=== PATIENT | male | born 1990 | race Two or more races ===

== ENCOUNTER 2017-01-20 21:53 | Inpatient (IN) | payer BC, MEDICAID ==
[2017-01-20 22:22] LABS: HEMOGLOBIN 15.8 gm/dL (13.2-17.3); MEAN CORPUSCULAR HEMOGLOBIN 30.9 pg (26.0-30.0); MEAN CORPUSCULAR HGB CONC 33.6 pg (28.0-36.0); MEAN PLATELET VOLUME 6.7 fl; PLATELET COUNT 418 Th/cmm (150-400); RED BLOOD COUNT 5.11 Mil/cmm (4.30-5.70); RED CELL DISTRIBUTION WIDTH 12.9 % (11.5-20.0)
[2017-01-20 22:32] LABS: WHITE BLOOD COUNT 12.8 Th/cmm (4.8-10.8)
[2017-01-20 22:37] LABS: INR 0.97 (0.5-1.4); PROTHROMBIN TIME (TEST) 10.1 SECONDS (9.5-11.5)
[2017-01-20] MEDS ORDERED: IOHEXOL 300MG/ML 100 ML VIAL ONE (22:42)
[2017-01-20 22:49] LABS: BASOPHIL 1 % (0-3); EOSINOPHIL 2 % (0-5); NEUTROPHILS 43 % (40-80); PLATELET ESTIMATE ADEQUATE (NORMAL); PLATELET MORPHOLOGY NORMAL (NORMAL); TOTAL CELLS COUNTED 100
[2017-01-20 22:50] LABS: ALB/GLOB RATIO 1.6 (1.0-1.8); ALKALINE PHOSPHATASE 82 U/L (34-104); ANION GAP 7.2 (7.0-16.0); BILIRUBIN,TOTAL 0.4 mg/dL (0.3-1.0); BUN - UREA NITROGEN 18 mg/dL (7-25); CALCIUM SERUM 9.5 mg/dL (8.6-10.3); CARBON DIOXIDE 24.3 mEq/L (21.0-31.0); CHLORIDE 109 mEq/L (98-107); CREATININE - SERUM 0.9 mg/dL (0.7-1.3); GLUCOSE 108 mg/dL (70-105); POTASSIUM SERUM 3.5 mEq/L (3.5-5.1); SGOT 12 U/L (13-39); SGPT/ALT 13 U/L (7-52); SODIUM SERUM 137 mEq/L (136-145)
--- NOTE | 2017-01-20 22:56 | ED Physician Chart ---
Chief Complaint/HPI - Patient Information Date Seen:: 01/20/17 Time Seen:: 22:00 Chief Complaint:: right lower quadrant pain History of Present Illness:: THIS IS A 26 YO MALE WHO STATES THAT HE SUDDENLY GOT RIGHT LOWER QUADRANT PAIN WITH SOME DIARRHEA. HE DENIES VOMITING AND FEVER. HE DENIES DIABETES, HEART DISEASE, GI PROBLEMS. HE ADMIT TO SMOKING THC BUT DENIES ALCOHOL AND ILLEGAL DRUGS. Allergies:: Allergies Allergy/AdvReac Type Severity Reaction Status Date / Time No Known Allergies Allergy Verified 01/20/17 21:55 Vitals:: Vital Signs - 8 hr 01/20/17 21:55 Temp 97.5 F HR 69 RR 16 BP 120/70 O2 Sat % 98 Historian:: Patient Review:: Nurse's Note Reviewed Review of Systems - Review of Systems General/Constitutional: No fever, No chills, No weight loss, No weakness, No diaphoresis, No edema, No loss of appetite Skin: No skin lesions, No rash, No bruising Head: No headache, No light-headedness Eyes: No loss of vision, No pain, No diplopia ENT: No earache, No nasal drainage, No sore throat, No tinnitus Neck: No neck pain, No swelling, No thyromegaly, No stiffness, No mass noted Cardio Vascular: No chest pain, No palpitations, No PND, No orthopnea, No edema Pulmonary: No SOB, No cough, No sputum, No wheezing GI: Nausea, No vomiting, No diarrhea, Pain (RIGHT LOWER QUADRANT), No melena, No hematochezia, No constipation, No hematemesis G/U: No dysuria, No frequency, No hematuria Musculoskeletal: No bone or joint pain, No back pain, No muscle pain Endocrine: No polyuria, No polydipsia Psychiatric: No prior psych history, No depression, No anxiety, No suicidal ideation Hematopoietic: No bruising, No lymphadenopathy Allergic/Immuno: No urticaria, No angioedema Neurological: No syncope, No focal symptoms, No weakness, No paresthesia, No headache, No seizure, No dizziness, No confusion, No vertigo Past Medical History - Past Medical History Obtainable: Yes Past Medical History: No significant medical hx Family History: None Social History: Smoker, No Alcohol, No Drug Use, Employed Surgical History: None Psychiatricy History: None Family Medical History - Family Member Mother History Unknown: Yes Ethnicity: Living Status: Still Living Physical Exam - Physical Examination General/Constitutional: Awake, Well-developed, well-nourished, Alert, No distress, GCS 15, Non-toxic appearing, Ambulatory Head: Atraumatic Eyes: Lids, conjuctiva normal, PERRL, EOMI Skin: Nl inspection, No rash, No skin lesions, No ecchymosis, Well hydrated, No lymphadenopathy ENMT: External ears, nose nl, Nasal exam nl, Lips, teeth, gums nl Neck: Nontender, Full ROM w/o pain, No JVD, No nuchal rigidity, No bruit, No mass, No stridor Respiratory: Nl effort/Exclusion, Clear to Auscultation, No Wheeze/Rhonchi/Rales Cardio Vascular: RRR, No murmur, gallop, rubs, NL S1 S2 GI: No organomegaly, No hernia, Normal BS's, Nondistended, No mass/bruits, No McBurney tenderness Other GI comments:: RIGHT LOWER QUADRANT SIMÓN : No CVA tenderness Extremities: No tenderness or effusion, Full ROM, normal strength in all extremities, No edema, Normal digits & nails Neuro/Psych: Alert/oriented, DTR's symmetric, Normal sensory exam, Normal motor strength, Judgement/insight normal, Mood normal, Normal gait, No focal deficits Misc: normal gait, Normal back, No paraspinal tenderness Labs/Radiology/EKG Results - Lab Results Results: Laboratory Tests 01/20/17 01/20/17 01/20/17 22:15 22:15 22:15 WBC 12.8 H RBC 5.11 Hgb 15.8 Hct 47.0 MCV 92.0 MCH 30.9 H MCHC Differential 33.6 RDW 12.9 Plt Count 418 H MPV 6.7 Neutrophils (Manual) 43 Lymphocytes 48 Monocytes 5 Eosinophils 2 Basophils 1 Atypical Lymphocytes 1 Platelet Estimate ADEQUATE Platelet Morphology NORMAL RBC Morph Micro Appear NORMAL PT 10.1 INR 0.97 PTT (Actin FS) 27.9 Troponin I 0.01 Abnormal Lab Results 01/20/17 01/20/17 01/20/17 22:15 22:15 22:15 WBC 12.8 H RBC 5.11 Hgb 15.8 Hct 47.0 MCV 92.0 MCH 30.9 H MCHC Differential 33.6 RDW 12.9 Plt Count 418 H MPV 6.7 Neutrophils (Manual) 43 Lymphocytes 48 Monocytes 5 Eosinophils 2 Basophils 1 Atypical Lymphocytes 1 Platelet Estimate ADEQUATE Platelet Morphology NORMAL RBC Morph Micro Appear NORMAL PT 10.1 INR 0.97 PTT (Actin FS) 27.9 Sodium 137 Potassium 3.5 Chloride 109 H Carbon Dioxide 24.3 Anion Gap 7.2 BUN 18 Creatinine 0.9 Est GFR ( Amer) > 60.0 Est GFR (Non-Af Amer) > 60.0 BUN/Creatinine Ratio 20.0 Glucose 108 H Whole Bld Lactic Acid Calcium 9.5 Total Bilirubin 0.4 AST 12 L ALT 13 Alkaline Phosphatase 82 Troponin I Total Protein 7.0 Albumin 4.3 Globulin 2.7 Albumin/Globulin Ratio 1.6 01/20/17 01/20/17 22:15 22:15 WBC RBC Hgb Hct MCV MCH MCHC Differential RDW Plt Count MPV Neutrophils (Manual) Lymphocytes Monocytes Eosinophils Basophils Atypical Lymphocytes Platelet Estimate Platelet Morphology RBC Morph Micro Appear PT INR PTT (Actin FS) Sodium Potassium Chloride Carbon Dioxide Anion Gap BUN Creatinine Est GFR ( Amer) Est GFR (Non-Af Amer) BUN/Creatinine Ratio Glucose Whole Bld Lactic Acid 0.84 Calcium Total Bilirubin AST ALT Alkaline Phosphatase Troponin I 0.01 Total Protein Albumin Globulin Albumin/Globulin Ratio ED Septic Shock - . Is Septic Shock (SBP<90, OR Lactate>4 mmol\L) present?: No - <6hrs of presentation: Vital Signs: Vital Signs - 8 hr 01/20/17 21:55 Temp 97.5 F HR 69 RR 16 BP 120/70 O2 Sat % 98 Reassessment (Disposition) - Reassessment Reassessment Condition:: Improved - Aftercare/Follow up Instructions Aftercare/Follow-Up Instructions:: Counseled pt regarding lab results/diagnosis & need follow up, Refer to Discharge Instructions, Counseled pt & family regarding lab results/diagnosis & need follow up - Patient Disposition Discharge/Transfer:: Home
[2017-01-20 22:58] LABS: AMPHETAMINE URINE NEGATIVE (NEGATIVE); BARBITURATES URINE NEGATIVE (NEGATIVE); METHADONE URINE NEGATIVE (NEGATIVE)
[2017-01-20 23:36] LABS: URINE BILIRUBIN NEGATIVE (NEGATIVE); URINE BLOOD MODERATE (NEGATIVE); URINE GLUCOSE (UA) NEGATIVE (NEGATIVE); URINE KETONE NEGATIVE (NEGATIVE); URINE PH 6.5 (4.6 - 8.0); URINE PROTEIN NEGATIVE (NEGATIVE); URINE UROBILINOGEN 0.2 E.U./dL (0.2 - 1.0)
[2017-01-20 23:39] LABS: URINE COLOR YELLOW
[2017-01-20 23:40] LABS: URINE BACTERIA OCCASIONAL /hpf (NONE SEEN); URINE EPITHELIAL CELLS RARE /lpf (FEW); URINE WBC 0-2 /hpf (0-5)
[2017-01-21] MEDS ORDERED: Morphine Sulfate 2 mg/mL 1mL Syr IVP PRN (02:38)
[2017-01-21] MEDS ORDERED: D5-0.45NS 1,000 ML IV SCH (02:38)
[2017-01-21 04:13] VITALS: BP 122/66
--- NOTE | 2017-01-21 08:14 | History and Physical ---
History of Present Illness - HPI Chief Complaint: Right Lower Quadrant abdominal Pain HPI: 26y/o male who presents to [facility] ER for right lower quadrant abdominal pain with diarrhea. Patient denies nausea or vomiting and fever. He also denies diabetes mellitus, heat disease or GI problems. He has a history of smoking THC, drinks alcohol and illicit drugs. Vital Signs: Last Vital Signs Temp 98 F 01/21/17 04:00 Pulse 66 01/21/17 04:00 Resp 19 01/21/17 04:00 BP 122/66 01/21/17 04:12 Pulse Ox 97 01/21/17 04:00 Past Medical History Cardiovascular: Report: No Pertinent Hx Pulmonary: Report: No Pertinent Hx COMMUNICATIONS SENIOR ASSOCIATE: Report: No Pertinent Hx GI: Report: No Pertinent Hx Psych: Report: No Pertinent Hx Musculoskeletal: Report: No Pertinent Hx Rheumatologic: Report: No pertinent Hx Infectious Disease: Report: No Pertinent Hx Renal/: Report: No Pertinent Hx Endocrine: Report: No Pertinent Hx Dermatology: Report: No Pertinent Hx - Past Surgical History Past Surgical History: No pertinent Hx Family Medical History - Family Member Mother History Unknown: Yes Ethnicity: Living Status: Still Living Social History Smoke: <1 pack per day Alcohol: None Drugs: None Lives: Alone - Medications Home Medications: Home Medication Medication Instructions Recorded Type NK [NK] 03/04/12 History - Allergies Allergies/Adverse Reactions: Allergies Allergy/AdvReac Type Severity Reaction Status Date / Time No Known Allergies Allergy Verified 01/20/17 21:55 Review of Systems - Review of Systems Constitutional: Report: No Significant Eyes: Report: No Significant ENT: Report: No Significant Respiratory: Report: No Significant Cardiovascular: Report: No Significant Gastrointestinal: Report: Abdominal Pain, Diarrhea. Denies: Nausea, Vomiting Genitourinary: Report: No Significant Musculoskeletal: Report: No Significant Skin: Report: No Significant Neurological: Report: No Significant Physical Exam - Physical Exam HEENT: Report: Ears Nose Throat within normal limits Neck: Report: Within normal limits Cardiovascular Systems: Report: +s1/s2 noted, Regular, Rate and Rhythm, no murmurs noted Respiratory: Report: Breath Sounds are within normal limits Extremities: Report: Non-tender to palpation. Skin: Report: Color of skin is within normal limits Neuro/Psych: Report: Mood affect is within normal limits, A+Ox3 - Lab Results All Lab Results last 24 hours: Laboratory Last Values WBC 12.8 Th/cmm (4.8-10.8) H 01/20/17 22:15 RBC 5.11 Mil/cmm (4.30-5.70) 01/20/17 22:15 Hgb 15.8 gm/dL (13.2-17.3) 01/20/17 22:15 Hct 47.0 % (39.0-49.0) 01/20/17 22:15 MCV 92.0 fl (80-99) 01/20/17 22:15 MCH 30.9 pg (26.0-30.0) H 01/20/17 22:15 MCHC Differential 33.6 pg (28.0-36.0) 01/20/17 22:15 RDW 12.9 % (11.5-20.0) 01/20/17 22:15 Plt Count 418 Th/cmm (150-400) H 01/20/17 22:15 MPV 6.7 fl 01/20/17 22:15 Neutrophils (Manual) 43 % (40-80) 01/20/17 22:15 Lymphocytes 48 % (20-50) 01/20/17 22:15 Monocytes 5 % (2-10) 01/20/17 22:15 Eosinophils 2 % (0-5) 01/20/17 22:15 Basophils 1 % (0-3) 01/20/17 22:15 Atypical Lymphocytes 1 % 01/20/17 22:15 Platelet Estimate ADEQUATE (NORMAL) 01/20/17 22:15 Platelet Morphology NORMAL (NORMAL) 01/20/17 22:15 RBC Morph Micro Appear NORMAL (NORMAL) 01/20/17 22:15 PT 10.1 SECONDS (9.5-11.5) 01/20/17 22:15 INR 0.97 (0.5-1.4) 01/20/17 22:15 PTT (Actin FS) 27.9 SECONDS (26.0-38.0) 01/20/17 22:15 Sodium 137 mEq/L (136-145) 01/20/17 22:15 Potassium 3.5 mEq/L (3.5-5.1) 01/20/17 22:15 Chloride 109 mEq/L (98-107) H 01/20/17 22:15 Carbon Dioxide 24.3 mEq/L (21.0-31.0) 01/20/17 22:15 Anion Gap 7.2 (7.0-16.0) 01/20/17 22:15 BUN 18 mg/dL (7-25) 01/20/17 22:15 Creatinine 0.9 mg/dL (0.7-1.3) 01/20/17 22:15 Est GFR ( Amer) > 60.0 ml/min (>90) 01/20/17 22:15 Est GFR (Non-Af Amer) > 60.0 ml/min 01/20/17 22:15 BUN/Creatinine Ratio 20.0 01/20/17 22:15 Glucose 108 mg/dL (70-105) H 01/20/17 22:15 Whole Bld Lactic Acid 0.84 mmol/L (0.60-1.99) 01/20/17 22:15 Calcium 9.5 mg/dL (8.6-10.3) 01/20/17 22:15 Total Bilirubin 0.4 mg/dL (0.3-1.0) 01/20/17 22:15 AST 12 U/L (13-39) L 01/20/17 22:15 ALT 13 U/L (7-52) 01/20/17 22:15 Alkaline Phosphatase 82 U/L (34-104) 01/20/17 22:15 Troponin I 0.01 ng/mL (0.01-0.05) 01/20/17 22:15 Total Protein 7.0 gm/dL (6.0-8.3) 01/20/17 22:15 Albumin 4.3 gm/dL (4.2-5.5) 01/20/17 22:15 Globulin 2.7 gm/dL 01/20/17 22:15 Albumin/Globulin Ratio 1.6 (1.0-1.8) 01/20/17 22:15 TSH 1.01 uIU/ml (0.34-5.60) 01/20/17 22:15 Urine Source CLEAN C 01/20/17 22:10 Urine Color YELLOW 01/20/17 22:10 Urine Clarity CLEAR (CLEAR) 01/20/17 22:10 Urine pH 6.5 (4.6 - 8.0) 01/20/17 22:10 Ur Specific [place] 1.020 (1.005-1.030) 01/20/17 22:10 Urine Protein NEGATIVE mg/dL (NEGATIVE) 01/20/17 22:10 Urine Glucose (UA) NEGATIVE mg/dL (NEGATIVE) 01/20/17 22:10 Urine Ketones NEGATIVE mg/dL (NEGATIVE) 01/20/17 22:10 Urine Blood MODERATE (NEGATIVE) H 01/20/17 22:10 Urine Nitrate NEGATIVE (NEGATIVE) 01/20/17 22:10 Urine Bilirubin NEGATIVE (NEGATIVE) 01/20/17 22:10 Urine Urobilinogen 0.2 E.U./dL (0.2 - 1.0) 01/20/17 22:10 Ur Leukocyte Esterase NEGATIVE (NEGATIVE) 01/20/17 22:10 Urine RBC 10-25 /hpf (0-5) H 01/20/17 22:10 Urine WBC 0-2 /hpf (0-5) 01/20/17 22:10 Ur Epithelial Cells RARE /lpf (FEW) 01/20/17 22:10 Urine Bacteria OCCASIONAL /hpf (NONE SEEN) 01/20/17 22:10 Urine Mucus FEW /lpf (FEW) 01/20/17 22:10 Urine Opiates Screen NEGATIVE (NEGATIVE) 01/20/17 22:10 Urine Methadone Screen NEGATIVE (NEGATIVE) 01/20/17 22:10 Ur Barbiturates Screen NEGATIVE (NEGATIVE) 01/20/17 22:10 Ur Tricyclics Screen NEGATIVE (NEGATIVE) 01/20/17 22:10 Ur Phencyclidine Scrn NEGATIVE (NEGATIVE) 01/20/17 22:10 Amphetamines Screen NEGATIVE (NEGATIVE) 01/20/17 22:10 U Methamphetamines Scrn NEGATIVE (NEGATIVE) 01/20/17 22:10 U Benzodiazepines Scrn NEGATIVE (NEGATIVE) 01/20/17 22:10 U Cocaine Metab Screen NEGATIVE (NEGATIVE) 01/20/17 22:10 U Cannabinoids Screen POSITIVE (NEGATIVE) H 01/20/17 22:10 - Assessment Assessment: right lower quadrant abdominal pain colitis leukocytosis diarrhea - Plan Plan: Will admit patient for IV fluids, keep NPO. GI consult with Vanessa and General Surgery consults with Dr. Coe. Repeat labwork this morning. Patient started on IV Levofloxacin
[2017-01-21] MEDS ORDERED: Levofloxacin 500mg/100mL 500 MG/100 ML BAG IV SCH (09:00)
--- NOTE | 2017-01-21 09:12 | Diagnostic Imaging Report ---
CT abdomen and pelvis with intravenous contrast Indication: Right lower quadrant pain Comparison: None, Technique: Axial images were obtained from the lung bases to the bilateral proximal femurs with IV contrast. Coronal reconstructions were made. total DLP: 343, CTDI7.5 FINDINGS: Atelectatic changes of the lung bases are noted. No evidence of focal hepatic, splenic, pancreatic, or adrenal lesions. Subcentimeter low-density lesion of the kidneys are noted to small characterize but suggestive of cysts. Small bilateral fat-containing inguinal hernias are noted. Diverticulosis is noted. Areas of large bowel wall prominence are seen greatest within the ascending colon. No evidence of appendicitis. No free air or free fluid. Few borderline prominent mesenteric lymph nodes are noted. There is mild small bowel prominence are seen with fluid-filled loops of small bowel also noted. The osseous structures demonstrate no acute abnormalities. There is old mild compression deformity of the superior endplate of L1. IMPRESSION: No evidence of acute appendicitis. Areas of large bowel wall prominence greatest within the ascending colon. Findings may be due to infectious or inflammatory colitis. Please correlate clinically. Additional areas of mild small bowel wall thickening possibly due to infectious or inflammatory process. Again correlation should be made clinically. No evidence of free fluid. A few borderline prominent mesenteric lymph nodes nonspecific and may be due to mesenteric adenitis. Mild chronic compression deformity of L1.
[2017-01-21 09:33] LABS: % EOSINOPHILS 3.9 % (0.0-5.0); % LYMPHOCYTES 43.5 % (20.0-50.0); % MONOCYTES 6.6 % (2.0-10.0); HEMATOCRIT 48.7 % (39.0-49.0); HEMOGLOBIN 16.2 gm/dL (13.2-17.3); MEAN CELL VOLUME 92.3 fl (80-99); MEAN CORPUSCULAR HEMOGLOBIN 30.8 pg (26.0-30.0); MEAN CORPUSCULAR HGB CONC 33.3 pg (28.0-36.0); MEAN PLATELET VOLUME 6.9 fl; PLATELET COUNT 404 Th/cmm (150-400); RED BLOOD COUNT 5.28 Mil/cmm (4.30-5.70); RED CELL DISTRIBUTION WIDTH 13.2 % (11.5-20.0)
[2017-01-21 09:39] LABS: WHITE BLOOD COUNT 8.6 Th/cmm (4.8-10.8)
[2017-01-21 09:51] LABS: ALB/GLOB RATIO 1.6 (1.0-1.8); ALKALINE PHOSPHATASE 80 U/L (34-104); ANION GAP 7.8 (7.0-16.0); BILIRUBIN,TOTAL 0.7 mg/dL (0.3-1.0); BUN - UREA NITROGEN 12 mg/dL (7-25); BUN/CREATININE RATIO 17.1; CALCIUM SERUM 9.7 mg/dL (8.6-10.3); CARBON DIOXIDE 25.8 mEq/L (21.0-31.0); CHLORIDE 108 mEq/L (98-107); CREATININE - SERUM 0.7 mg/dL (0.7-1.3); GLUCOSE 115 mg/dL (70-105); POTASSIUM SERUM 3.6 mEq/L (3.5-5.1); SGOT 12 U/L (13-39); SGPT/ALT 13 U/L (7-52); SODIUM SERUM 138 mEq/L (136-145)
--- NOTE | 2017-01-21 11:38 | Consultation ---
DATE OF CONSULTATION: 01/21/2017 REFERRING PHYSICIAN: Dr. Davis. REASON FOR CONSULTATION: Abdominal pain. Thank you for referring this patient to me. HISTORY OF PRESENT ILLNESS: This is a 26-year-old male who comes in for three-day history of abdominal pain associated with some diarrhea. The patient has otherwise been healthy and denies other symptoms in the past. He admits for having two jobs and constantly on the move, unable to eat properly and eat junk food most of the time. He has a family to raise. LABORATORY STUDIES: On this admission showed WBC elevated slightly 12,800, rest are within normal limits. Chemistry: Blood sugar is normal. He underwent CT scan and this showed diverticulosis as well as prominence in the ascending colon suggestive of inflammation. PHYSICAL EXAMINATION: He has minimal tenderness now. Abdomen is otherwise soft. IMPRESSION: 1. Diverticulosis. 2. Possible colitis. RECOMMENDATION: The patient needs to have a diet, for diverticulosis and colitis will need to be addressed by the weight loss sales consultant. No surgical condition at this point. JOB# [id number]
--- NOTE | 2017-01-21 19:35 | Consultation ---
DATE OF CONSULTATION: 01/21/2017 INPATIENT GI CONSULT CONSULTING PHYSICIAN: Dr. Davis. REASON FOR CONSULTATION: Colitis and diarrhea. HISTORY OF PRESENT ILLNESS: The patient is a 26-year-old male with no past medical history who presented to the Emergency Room after 3 days of worsening abdominal pain and diarrhea. The patient reports that he has been having very watery and loose brown stool increasingly so over the past 3 days. His abdominal pain is in the bilateral lower quadrants and has also been intensifying. As this patient , he decided to seek attention in the Emergency Room last night. Once in the ER, he did have an elevated white blood cell count to 12.[address] scan that showed areas of large bowel wall prominence consistent with colitis and also areas of mild small bowel wall thickening. The patient was started on Levaquin and admitted to the hospital. Today, he feels much better, has not had any diarrhea and his abdominal pain he reports is entirely resolved and he has to be discharged. PAST MEDICAL HISTORY: The patient reports that he does not have any medical problems. PAST SURGICAL HISTORY: There is no history of major surgeries. FAMILY HISTORY: The patient denies any history of inflammatory bowel disease or GI cancers or liver disease. SOCIAL HISTORY: The patient does smoke daily marijuana. He denies tobacco products and drinks alcohol socially. ALLERGIES: There are no known drug allergies. REVIEW OF SYSTEMS: A 12-point review of systems was performed and is negative other than the pertinent positives mentioned in the HPI. CURRENT MEDICATIONS: Levaquin, morphine, and Zofran. PHYSICAL EXAMINATION: VITAL SIGNS: Blood pressure 122/83, pulse 62, respiratory rate 18, and oxygen saturation 100% on room air. GENERAL: The patient is sitting up in bed, in no apparent distress, alert and oriented x 3. HEENT: No scleral icterus. Pupils are equal and reactive. Extraocular muscles are intact. Oropharynx is clear. Moist mucous membranes. NECK: Supple. No JVD. No lymphadenopathy. No thyromegaly. LUNGS: Clear to auscultation bilaterally. ABDOMEN: Soft, very mild tenderness to deep palpation. No guarding and no rebound. Positive bowel sounds. EXTREMITIES: No edema. Positive pulses. Full range of motion. NEUROLOGIC: Nonfocal. SKIN: No jaundice. No obvious rashes. LABORATORY DATA: White blood cell count on admission 12.8, hemoglobin 15.8, and platelet count 418,000. INR is 0.9. Sodium 137, BUN 18, creatinine 0.9, AST 12, and ALT 13. Lactic acid 0.84. RPR nonreactive. IMAGING: CT abdomen and pelvis with contrast was performed, showed no evidence of acute appendicitis, areas of large bowel wall prominence, greatest within the ascending colon. Findings may be due to infectious versus inflammatory colitis, areas of mild small bowel and wall thickening, possibly due to infectious or inflammatory process. Again, correlation should be made clinically. IMPRESSION: This is a 26-year-old male with no past medical history who is presenting with 3 days of intensifying diarrhea and abdominal pain. PROBLEMS: 1. Diarrhea. 2. Abdominal pain. 3. Colitis. 4. Enteritis. DISCUSSION: Etiologies for the patient's symptoms include infectious enterocolitis versus inflammatory colitis given the acute nature of the symptoms. I believe infectious is most likely a culprit and the patient feels much improved after initiation of antibiotics and supportive care. His white count is also resolved. He does not have a lactic acidosis and is eating. Thus, it is probably okay for the patient to be discharged today to complete a 7-day course of antibiotics at home. The patient should follow up with his primary care and GI physician in 1 month's time in order to ensure that he does not have any further symptoms and at that time, he can be evaluated for colonoscopy to ensure no inflammatory bowel disease, underlying this presentation. Thank you for allowing me to participate in the care of this patient. Please call with any further questions. [facility]# [id number]
== END 2017-01-21 18:30 | disposition home or self-care (01) | DRG 392 ==
LOC: ER 21:53 → MSI 01-21 01:50
PROVIDERS: ADMIT Family Medicine; ATTEND Family Medicine
DX: A09 Infectious gastroenteritis and colitis, unspecified (principal); D72.829 Elevated white blood cell count, unspecified; F12.90 Cannabis use, unspecified, uncomplicated; F17.210 Nicotine dependence, cigarettes, uncomplicated; K57.90 Diverticulosis of intestine, part unspecified, without perforation or abscess without bleeding; R31.9 Hematuria, unspecified
CPT/HCPCS: 36415-UA; 80053-TC; 80307; 81001-TC; 83605; 84443-TC; 84484-TC; 85007-TC; 85025-TC; 85027-TC; 85610-TC; 85730-TC; 86592-TC; 96374; J0696; J1956; Q9967